=== PATIENT | male | born 1970 | race Caucasian/White ===

== ENCOUNTER 2019-06-08 15:31 | Emergency (ER) | payer MEDICAID, MEDICARE, OTHER, SELFPAY ==
[~2019-06-08] VITALS: Ht 180.3 cm; Wt 79.0 kg
[2019-06-08 15:51] VITALS: BP 129/72
== END 2019-06-08 16:26 | disposition home or self-care (01) ==
LOC: ED 16:05
DX: S50.862A Insect bite (nonvenomous) of left forearm, initial encounter (principal); S50.861A Insect bite (nonvenomous) of right forearm, initial encounter; F17.200 Nicotine dependence, unspecified, uncomplicated; Z88.0 Allergy status to penicillin; W57.XXXA Bitten or stung by nonvenomous insect and other nonvenomous arthropods, initial encounter; Y93.89 Activity, other specified; Y92.89 Other specified places as the place of occurrence of the external cause; Y99.8 Other external cause status
CPT/HCPCS: 99283

== ENCOUNTER 2021-04-24 21:11 | Emergency (ER) | payer SELFPAY ==
[~2021-04-24] VITALS: Ht 180.3 cm; Wt 69.4 kg
[2021-04-24 21:15] VITALS: BP 135/82
--- NOTE | 2021-04-24 21:25 | NUR ---
PT IN LOBBY, YELLING PROFANITIES AT SECURITY STAFF
--- NOTE | 2021-04-24 21:35 | NUR ---
ESCORTED OUT BY SECURITY
== END 2021-04-24 21:36 | disposition home or self-care (01) ==
LOC: ED 21:20
DX: S39.012A Strain of muscle, fascia and tendon of lower back, initial encounter (principal); Y08.89XA Assault by other specified means, initial encounter; Y93.89 Activity, other specified; Y92.89 Other specified places as the place of occurrence of the external cause; Y99.8 Other external cause status
CPT/HCPCS: 99283